=== PATIENT | male | born 1995 | race African-American/Black ===

== ENCOUNTER 2021-03-15 19:16 | Emergency (ER) | payer MEDICAID, SELFPAY ==
[2021-03-15 19:17] VITALS: BP 135/91; PULSE 96; RESP 18; TEMP 35.8; O2SAT 98; BMI 20.9
--- NOTE | 2021-03-15 20:49 | NURSING ---
Patient left without being seen, stating he has to take his friend's car back and will be back.
== END 2021-03-15 20:50 | disposition left against medical advice (07) ==
LOC: ED 20:51
PROVIDERS: Emergency Provider Student in an Organized Health Care Education/Training Program; Visit Provider Student in an Organized Health Care Education/Training Program
DX: R11.2 Nausea with vomiting, unspecified (principal)
CPT/HCPCS: 96374; 96375; 99282; 99284; J7030; A4216; J2405

== ENCOUNTER 2021-03-15 21:12 | Emergency (ER) | payer MEDICAID, SELFPAY ==
[2021-03-15 21:13] VITALS: BP 125/77; PULSE 91; RESP 18; TEMP 36.6; O2SAT 100; BMI 21.5
--- NOTE | 2021-03-15 22:01 | CM.ED ---
LISA Note Referral Source: Case Find Referral Reason: No PCP LISA met with patient. He reports he has insurance. LISA provided patient with list of resources in [facility] and list of [facility] Healthcare Provider. Patient voiced no further issues or concerns. LIAS remains available. Plan: Pt encouraged to locate a PCP Gaviota HYATT
[2021-03-15] MEDS: Ondansetron 4 MG/2 ML Vial IV (22:14)
[2021-03-15] MEDS: Ketorolac 15 MG/ML Vial IV (22:14)
--- NOTE | 2021-03-15 22:49 | EDS_ITS ---
HPI HPI - GI History of Present Illness Chief Complaint: Nausea/Vomiting Narrative Narrative: 25-year-old male presenting with abdominal cramping, nausea and vomiting x1. Patient states that 2 days ago he had some short ribs which tasted like they had mechanical design engineer facilities fluid on them and he began to feel nauseous and sick. He states that he does not typically eat food like this and typically has salads and healthy things. Today when he felt better he went to [employer] and had a hamburger and started to feel nauseous again. He did not vomit. He describes abdominal cramping without diarrhea. He has no urinary complaints. Is not had fever or chills. He does not have a cough or shortness of breath. Patient states that his mother had a viral bug about 2 weeks ago. He never became sick by being near her. Nobody around him is sick. The only thing that he ate d ifferent was the ribs and he and his other friends all ate [employer]. PFSH PFS Home Medications albuterol sulfate 1 inh INHALATION Q6H PRN #1 ea 03/15/21 [Rx Last Taken Unknown] albuterol sulfate 2 puff INHALATION Q6H PRN PRN 03/15/21 [History Last Taken Unknown] ondansetron 4 mg PO Q8H PRN #10 tab 03/15/21 [Rx Last Taken Unknown] Allergy/AdvReac Type Severity Reaction Status Date / Time No Known Allergies Allergy Verified 03/15/21 21:15 Social History Smoking Status: Unknown if ever smoked ROS ROS ED Constitutional Constitutional ED: Denies chills or fever(s) ENT ENT ED: Denies rhinorrhea or sore throat Cardiovascular Cardiovascular: Denies chest pain or palpitations Respiratory/Chest Respiratory/Chest: Denies cough or dyspnea Gastrointestinal Gastrointestinal: Reports abdominal pain, nausea and vomiting; Denies constipation or diarrhea Genitourinary Genitourinary ED: Denies dysuria or hematuria Musculoskeletal Musculoskeletal: Denies arthralgias or myalgias Integumentary Denies abscess or rash Neurologic Neurologic: Denies headache(s) or weakness EXAM Physical Exam Const Vital Signs: 03/15/21 21:13 03/15/21 23:13 Temperature 98 F Temperature Source Temporal Pulse Rate 91 Respiratory Rate 18 19 H Blood Pressure 125/77 H Blood Pressure Mean 93 Pulse Ox 100 97 Oxygen Delivery Method Room Air Room Air Positive well nourished and well developed General Appearance ED: well developed, NAD and pallor HEENT Reports moist mucous membranes normocephalic and atraumatic Eyes PERRL and EOMs intact bilaterally Resp normal respiratory effort and clear to auscultation bilaterally Cardio regular rate and regular rhythm GI non-tender and non-distended Auscultation: normoactive bowel sounds Palpation: soft Neuro CN's II-XII intact bilaterally and moves all extremities Sensorium / Orientation: alert, oriented to person, oriented to place and oriented to time Motor Exam: strength 5/5 throughout Psych mental status grossly normal and thought process normal Skin General Skin Exam: jaundice and pallor MDM MDM MDM Narrative Medical decision making narrative: Patient was given Zofran and Toradol and his symptoms improved. I believe the patient likely is having a reaction to the food he ate. He is counseled on healthy diet. He is given Zofran for home. Patient does request a refill for his albuterol which he takes for asthma. This is provided. Patient is discharged home in stable condition. Impression: 1. Nausea/ Discharge Plan Triage Chief Complaint: Nausea/Vomiting ED Provider: Max Nassar Dx/Rx/DC Orders Instructions: ED Diet for Vomiting or ... Prescriptions: New albuterol sulfate 90 mcg/actuation aerosol powdr breath activated 1 inh inhalation Q6H PRN (Reason: shortness of breath) Qty: 1 RF: 0 ondansetron 4 mg tablet,disintegrating 4 mg PO Q8H PRN (Reason: nausea and vomiting) Qty: 10 RF: 0 No Action albuterol sulfate 90 mcg/actuation HFA aerosol inhaler 2 puff INHALATION Q6H PRN PRN (Reason: Shortness Of Breath Or Wheezing) RF: 0 Primary Care Provider: Care Physician,No Primary Referrals: Diane Bañuelos MD [STAFF PHYSICIAN] - As Needed Care Physician,No Primary [Primary Care Provider] - Disposition Disposition: Home, Self Care
[2021-03-15 23:13] VITALS: RESP 19; O2SAT 97
[2021-03-15 23:24] VITALS: BP 120/61; PULSE 78; RESP 16; O2SAT 96
== END 2021-03-15 23:25 | disposition home or self-care (01) ==
PROVIDERS: Emergency Provider Student in an Organized Health Care Education/Training Program; Visit Provider Student in an Organized Health Care Education/Training Program
DX: R11.2 Nausea with vomiting, unspecified (principal); R10.9 Unspecified abdominal pain; J45.909 Unspecified asthma, uncomplicated; Z79.899 Other long term (current) drug therapy
CPT/HCPCS: J2405; J7030; A4216